=== PATIENT | female | born 2000 | race Caucasian/White ===

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

== ENCOUNTER 2019-04-07 10:40 | Outpatient (CLI) | payer MEDICAID | END 2019-04-07 13:10 | disposition home or self-care (01) | LOC: OBT 10:40 → L-D 10:41 → OBT 13:10 | DX: O41.03X0 Oligohydramnios, third trimester, not applicable or unspecified (principal); O36.5930 Maternal care for other known or suspected poor fetal growth, third trimester, not applicable or unspecified; Z3A.37 37 weeks gestation of pregnancy | CPT/HCPCS: 76815; 76818 ==

== ENCOUNTER 2019-04-14 03:40 | Inpatient (IN) | payer MEDICAID ==
[2019-04-14] MEDS: LACTATED RINGER'S 1,000 ML IV ×3 (04:28→12:52)
[2019-04-14] MEDS ORDERED: METHYLERGONOVINE 0.2 MG INJ IM ×2 (04:30→19:00)
[2019-04-14] MEDS ORDERED: IBUPROFEN 600 MG TAB PO (04:30)
[2019-04-14] MEDS ORDERED: CARBOPROST 250 MCG INJ IM ×2 (04:30→19:00)
[2019-04-14] MEDS ORDERED: MISOPROSTOL 200 MCG TAB PR ×2 (04:30→19:00)
[2019-04-14] MEDS ORDERED: BUTORPHANOL 2 MG INJ IV (04:30)
[2019-04-14] MEDS ORDERED: OXYTOCIN 30 UNITS/LR 500 ML IV ×2 (04:30→19:00)
[2019-04-14] MEDS ORDERED: NALOXONE (0.4 MG/ML) INJ IV (05:30)
[2019-04-14] MEDS ORDERED: ONDANSETRON 4 MG INJ IV (05:30)
[2019-04-14] MEDS ORDERED: DIPHENHYDRAMINE 50 MG INJ IV (05:30)
[2019-04-14] MEDS ORDERED: HYDROmorphONE 0.5 MG/0.5 ML SYG IV ×2 (05:30)
[2019-04-14] MEDS ORDERED: KETOROLAC 30 MG INJ IV (05:30)
[2019-04-14] MEDS ORDERED: FENTAnyl 2MCG/ML-ROPIV 0.2% 100 ML BAG EPI (05:30)
[2019-04-14] MEDS ORDERED: MINERAL OIL 30ML CUP TOP (12:56)
[2019-04-14] MEDS: MINERAL OIL LIGHT 10 ML VIAL TOP (16:44)
[2019-04-14] MEDS: LIDOCAINE 1% (MPF) 30 ML INJ INJ (16:45)
[2019-04-14] MEDS: KETOROLAC 30 MG INJ IV (17:44)
[2019-04-14] MEDS: ACETAMINOPHEN 500 MG TAB PO (17:44)
[2019-04-14] MEDS: OXYTOCIN 30 UNITS/LR 500 ML IV ×2 (18:30→18:31)
[2019-04-14] MEDS ORDERED: HYDROCODONE/APAP (5/325) TAB PO ×2 (19:00)
[2019-04-14] MEDS: IBUPROFEN 600 MG TAB PO (19:00)
[2019-04-14] MEDS ORDERED: DIBUCAINE 1% 30 GM OINT TOP (19:00)
[2019-04-14] MEDS ORDERED: ZOLPIDEM 5 MG TAB PO (19:00)
[2019-04-14] MEDS: CEPHALEXIN 500 MG CAP PO (19:40)
[2019-04-14] MEDS: SENNA/DOCUSATE NA (8.6MG/50MG) TAB PO ×2 (21:00→21:11)
[2019-04-14] MEDS: MAGNESIUM HYDROXIDE 30ML CUP PO ×2 (21:00→21:11)
[2019-04-14] MEDS: BENZOCAINE 20% 56 ML SPRAY TOP (21:11)
[2019-04-14] MEDS: WITCH HAZEL/GLYCERIN PAD PR (21:11)
[2019-04-14] MEDS: LACTATED RINGER'S 1,000 ML IV* (21:11)
[2019-04-14] MEDS: LANOLIN HPA 1 PKT TOP (21:11)
[2019-04-15] MEDS: CEPHALEXIN 500 MG CAP PO ×5 (00:33→23:27)
[2019-04-15] MEDS: LACTATED RINGER'S 1,000 ML IV* (02:49)
[2019-04-15] MEDS: IBUPROFEN 600 MG TAB PO ×5 (06:00→23:27)
[2019-04-15] MEDS: SENNA/DOCUSATE NA (8.6MG/50MG) TAB PO ×2 (08:55→21:11)
[2019-04-15] MEDS: MAGNESIUM HYDROXIDE 30ML CUP PO ×2 (08:55→21:11)
[2019-04-16] MEDS: CEPHALEXIN 500 MG CAP PO (05:27)
[2019-04-16] MEDS: IBUPROFEN 600 MG TAB PO (05:27)
[2019-04-16] MEDS: SENNA/DOCUSATE NA (8.6MG/50MG) TAB PO (09:00)
[2019-04-16] MEDS: MAGNESIUM HYDROXIDE 30ML CUP PO (09:00)
[2019-04-16] MEDS: DIPHTH/TET/ACEL PERTUSS (ADULT) 0.5 ML VIAL IM* (09:42)
[2019-04-16] MEDS: MEASLES,MUMPS,RUBELLA VACCINE INJ SC* (09:42)
[2019-04-16] MEDS: VARICELLA VACCINE LIVE/PF 1,350 UNIT/0.5 ML ML SC* (09:43)
== END 2019-04-16 12:42 | disposition home or self-care (01) | DRG 807 ==
LOC: OBT 03:40 → L-D 03:40 → OBT 04:10 → L-D 04:10 → PP1 18:48
PROC: 10D07Z6 Extraction of Products of Conception, Vacuum, Via Natural or Artificial Opening (ICD-10-PCS; principal; 2019-04-14)
PROC: 4A1HXCZ Monitoring of Products of Conception, Cardiac Rate, External Approach (ICD-10-PCS; 2019-04-14)
PROC: 0W8NXZZ Division of Female Perineum, External Approach (ICD-10-PCS; 2019-04-14)
DX: O76 Abnormality in fetal heart rate and rhythm complicating labor and delivery (principal); Z37.0 Single live birth; Z3A.38 38 weeks gestation of pregnancy
CPT/HCPCS: 62322; 85025; 85610; 85730; 86592; 86850; 86900; 86901; 87340; 90716